=== PATIENT | female | born 1970 | race American Indian/Alaskan Native ===

== ENCOUNTER 2018-05-27 14:30 | Emergency (ER) | payer SELFPAY ==
[2018-05-27 14:56] VITALS: BP 152/98
[2018-05-27] MEDS ORDERED: MOTRIN PO ONE (15:38)
[2018-05-27] MEDS ORDERED: FLEXERIL PO ONE (15:38)
--- NOTE | 2018-05-27 15:51 | Emergency Department Report ---
ED Back Pain/Injury HPI - General Chief Complaint: Back Pain/Injury Stated Complaint: SHOULDER/BACK PAIN Time Seen by Provider: 05/27/18 15:29 Source: patient, EMS Limitations: No Limitations - History of Present Illness Initial Comments: Ms Lagos is a 47 year-old woman without reported PMH who presents with acute onset back pain. Was leaning over the sink cleaning chicken around noon when she felt a sharp pain in her back. Pain is between her spine and shoulder blade. Radiates through to her R side. Able to move her R arm without pain. Some pain in her back with deep breathing. Does not radiate to her chest as she says, but she points to her R lateral back, flank. better with rest. Worse with deep breathing, twisting, moving. No shortness of breath. No fever. No cough. No other complaints. No previous episodes like this. No home meds, no allergies. MD Complaint: back pain -: Sudden Time: 12:00 Similar Symptoms Previously: No Place: home Radiation: none Severity: moderate Quality: sharp Consistency: constant Improves With: immobilization Worsens With: movement, deep breaths/cough Context: while lifting Associated Symptoms: chest pain - Related Data Previous Rx's Medication Instructions Recorded Last Taken Type Ciprofloxacin 0.3% (Nf) [Cipro 2.5 ml OP QID #2.5 ml 02/12/15 Unknown Rx 0.3% (Nf)] Ibuprofen [Motrin 800 MG tab] 800 mg PO Q8H PRN #30 tablet 02/12/15 Unknown Rx Butalb/Acetamin/Caff 50-325-40 1 tab PO Q6HR PRN #30 tab 10/29/15 Unknown Rx [Fioricet] Naproxen [Naprosyn 125 mg/5 ml] 500 mg PO Q12H PRN #14 10/29/15 Unknown Rx Allergies Allergy/AdvReac Type Severity Reaction Status Date / Time No Known Allergies Allergy Verified 05/27/18 14:56 ED Review of Systems ROS: Stated complaint: SHOULDER/BACK PAIN Other details as noted in HPI Comment: All other systems reviewed and negative ED Past Medical Hx - Past Medical History Previous Medical History?: Yes Hx Headaches / Migraines: No - Surgical History Past Surgical History?: Yes Additional Surgical History: cyst removed under R arm - Social History Smoking Status: Never Smoker Substance Use Type: Alcohol - Medications Home Medications: Home Medications Medication Instructions Recorded Confirmed Last Taken Type Ciprofloxacin 0.3% (Nf) [Cipro 2.5 ml OP QID #2.5 ml 02/12/15 Unknown Rx 0.3% (Nf)] Ibuprofen [Motrin 800 MG tab] 800 mg PO Q8H PRN #30 tablet 02/12/15 Unknown Rx Butalb/Acetamin/Caff 50-325-40 1 tab PO Q6HR PRN #30 tab 10/29/15 Unknown Rx [Fioricet] Naproxen [Naprosyn 125 mg/5 ml] 500 mg PO Q12H PRN #14 10/29/15 Unknown Rx ED Physical Exam - General Limitations: No Limitations General appearance: alert, in no apparent distress - Head Head exam: Present: atraumatic, normocephalic - Eye Eye exam: Present: normal appearance, EOMI - ENT ENT exam: Present: normal exam, mucous membranes moist - Neck Neck exam: Present: normal inspection, full ROM. Absent: tenderness, meningismus - Respiratory Respiratory exam: Present: normal lung sounds bilaterally. Absent: respiratory distress, wheezes, rales - Cardiovascular Cardiovascular Exam: Present: regular rate, normal rhythm, normal heart sounds - GI/Abdominal GI/Abdominal exam: Present: soft. Absent: distended, tenderness - Rectal Rectal exam: Present: deferred - Extremities Exam Extremities exam: Present: normal inspection, full ROM. Absent: tenderness - Back Exam Back exam: Present: tenderness, paraspinal tenderness, other (R paraspinal ttp, thoracic paraspinal back. No bony ttp. isoalted soft tissue ttp. ). Absent: CVA tenderness (R), CVA tenderness (L), muscle spasm, vertebral tenderness - Neurological Exam Neurological exam: Present: alert, altered, normal gait. Absent: motor sensory deficit - Psychiatric Psychiatric exam: Present: normal affect, normal mood - Skin Skin exam: Present: warm, dry, intact. Absent: ecchymosis ED Course Vital Signs 05/27/18 14:44 Temperature 98.2 F Pulse Rate 75 Respiratory 22 Rate Blood Pressure 152/98 O2 Sat by Pulse 99 Oximetry ED Medical Decision Making - Medical Decision Making Ms lagos is a 47 year-old woman who presents with back pain. While bending over and cleaning food in the sink. Exam with muscular ttp. Suspect with this is muscle strain. No trauma, low suspicion of fracture. Clear lung sounds. PERC negative. No true chest pain. Low risk for ACS. Given ibuprofen and flexeril with moderate relief. Will dc to home with flexeril/ibuprofen for 2 days with pcp follow-up as needed. Critical care attestation.: If time is entered above; I have spent that time in minutes in the direct care of this critically ill patient, excluding procedure time. ED Disposition Clinical Impression: Strain of back Qualifiers: Encounter type: initial encounter Qualified Code(s): S39.012A - Strain of muscle, fascia and tendon of lower back, initial encounter Disposition: DC-01 TO HOME OR SELFCARE Is pt being admited?: No Condition: Stable Instructions: Muscle Strain (ED), Back Pain (ED), Muscle Spasm (ED) Referrals: PRIMARY CARE,MD [Primary Care Provider] - 3-5 Days
== END 2018-05-27 16:32 | disposition home or self-care (01) ==
LOC: ED 14:30
DX: S39.012A Strain of muscle, fascia and tendon of lower back, initial encounter (principal); X50.1XXA Overexertion from prolonged static or awkward postures, initial encounter; Y93.G1 Activity, food preparation and clean up; Y99.8 Other external cause status; Y92.89 Other specified places as the place of occurrence of the external cause
CPT/HCPCS: 93005; 93010; 99283

== ENCOUNTER 2019-05-19 09:22 | Emergency (ER) | payer OTHER ==
--- NOTE | 2019-05-19 10:00 | Emergency Department Report ---
ED General Adult HPI - General Chief complaint: Medical Clearance Stated complaint: HEADACHE/SLEEPLESSNESS Time Seen by Provider: 05/19/19 09:52 Source: patient Mode of arrival: Ambulatory Limitations: No Limitations - History of Present Illness Initial comments: 48 yo F states she is going through menopause and cannot deal with the hot flashes. Taking OTC supplement, but not relieving symptoms. -: unknown Quality: other (hot flashes) Consistency: intermittent Improves with: none Worsens with: none Associated Symptoms: headaches. denies: chest pain Treatments Prior to Arrival: other (OTC meds) - Related Data Previous Rx's Medication Instructions Recorded Last Taken Type Ciprofloxacin 0.3% (Nf) [Cipro 2.5 ml OP QID #2.5 ml 02/12/15 Unknown Rx 0.3% (Nf)] Ibuprofen [Motrin 800 MG tab] 800 mg PO Q8H PRN #30 tablet 02/12/15 Unknown Rx Butalb/Acetamin/Caff 50-325-40 1 tab PO Q6HR PRN #30 tab 10/29/15 Unknown Rx [Fioricet] Naproxen [Naprosyn 125 mg/5 ml] 500 mg PO Q12H PRN #14 10/29/15 Unknown Rx Cyclobenzaprine [Flexeril] 10 mg PO TID PRN #8 tablet 05/27/18 Unknown Rx Ibuprofen [Ibuprofen 400] 400 mg PO Q6HR PRN #15 tablet 05/27/18 Unknown Rx Allergies Allergy/AdvReac Type Severity Reaction Status Date / Time No Known Allergies Allergy Verified 05/27/18 14:56 ED Review of Systems ROS: Stated complaint: HEADACHE/SLEEPLESSNESS Other details as noted in HPI Comment: All other systems reviewed and negative Genitourinary: other (reports menopause) Neurological: headache Psychiatric: other (reports insomnia) ED Past Medical Hx - Past Medical History Previous Medical History?: No Hx Headaches / Migraines: No - Surgical History Past Surgical History?: No Additional Surgical History: cyst removed under R arm - Social History Smoking Status: Never Smoker Substance Use Type: None - Medications Home Medications: Home Medications Medication Instructions Recorded Confirmed Last Taken Type Ciprofloxacin 0.3% (Nf) [Cipro 2.5 ml OP QID #2.5 ml 02/12/15 Unknown Rx 0.3% (Nf)] Ibuprofen [Motrin 800 MG tab] 800 mg PO Q8H PRN #30 tablet 02/12/15 Unknown Rx Butalb/Acetamin/Caff 50-325-40 1 tab PO Q6HR PRN #30 tab 10/29/15 Unknown Rx [Fioricet] Naproxen [Naprosyn 125 mg/5 ml] 500 mg PO Q12H PRN #14 10/29/15 Unknown Rx Cyclobenzaprine [Flexeril] 10 mg PO TID PRN #8 tablet 05/27/18 Unknown Rx Ibuprofen [Ibuprofen 400] 400 mg PO Q6HR PRN #15 tablet 05/27/18 Unknown Rx ED Physical Exam - General Limitations: No Limitations General appearance: alert, in no apparent distress - Head Head exam: Present: atraumatic, normocephalic - Eye Eye exam: Present: normal appearance - ENT ENT exam: Present: mucous membranes moist - Neck Neck exam: Present: normal inspection - Respiratory Respiratory exam: Present: normal lung sounds bilaterally. Absent: respiratory distress - Cardiovascular Cardiovascular Exam: Present: regular rate, normal rhythm - GI/Abdominal GI/Abdominal exam: Absent: distended - Extremities Exam Extremities exam: Present: normal inspection - Neurological Exam Neurological exam: Present: alert, oriented X3 - Psychiatric Psychiatric exam: Present: normal affect, normal mood - Skin Skin exam: Present: warm, dry, intact, normal color ED Course Vital Signs 05/19/19 09:27 Temperature 98.1 F Pulse Rate 68 Respiratory 16 Rate Blood Pressure 143/92 O2 Sat by Pulse 98 Oximetry ED Medical Decision Making - Medical Decision Making Pt referred to [facility]. - Differential Diagnosis menopause Critical care attestation.: If time is entered above; I have spent that time in minutes in the direct care of this critically ill patient, excluding procedure time. ED Disposition Clinical Impression: Menopause Disposition: DC-01 TO HOME OR SELFCARE Is pt being admited?: No Condition: Stable Instructions: Menopause (ED) Referrals: KRISSY VILA MD [Primary Care Provider] - 3-5 Days [facility] [Provider Group] - 3-5 Days [place] [Outside] - 3-5 Days Time of Disposition: 09:54
[2019-05-19 10:04] VITALS: BP 140/90
== END 2019-05-19 10:03 | disposition home or self-care (01) ==
LOC: ED 09:22
DX: N95.1 Menopausal and female climacteric states (principal)